=== PATIENT | female | born 1995 | race Two or more races ===

== ENCOUNTER 2018-11-07 15:41 | Emergency (ER) | payer OTHER ==
[2018-11-07] MEDS ORDERED: Ketorolac INJ* 30 MG/ML 1 ML VIAL IM ONE (18:00)
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
[2018-11-07 19:09] VITALS: BP 129/79
== END 2018-11-07 19:08 | disposition home or self-care (01) ==
LOC: ED 15:41
DX: M54.9 Dorsalgia, unspecified (principal); V49.9XXA Car occupant (driver) (passenger) injured in unspecified traffic accident, initial encounter; Y92.410 Unspecified street and highway as the place of occurrence of the external cause; Z79.899 Other long term (current) drug therapy
CPT/HCPCS: 72070; 72110; 96372; 99282; J1885